=== PATIENT | male | born 1960 | race Caucasian/White ===

== ENCOUNTER 2017-11-02 16:24 | Outpatient (CLI) | payer OTHER | END 2017-11-02 16:25 | disposition home or self-care (01) | LOC: BICRAD 16:24 | PROVIDERS: ATTEND Chiropractor | DX: M54.2 Cervicalgia (principal); M54.5 Low back pain; M54.6 Pain in thoracic spine; M47.896 Other spondylosis, lumbar region; M41.86 Other forms of scoliosis, lumbar region; M41.84 Other forms of scoliosis, thoracic region; M47.894 Other spondylosis, thoracic region; M47.892 Other spondylosis, cervical region | CPT/HCPCS: 72040; 72072; 72100 ==

== ENCOUNTER 2020-08-26 01:16 | Inpatient (IN) | payer MEDICARE ==
[2020-08-26] MEDS ORDERED: Ondansetron PF 4 MG/2 ML Vial IVP PRN (01:17)
[2020-08-26] MEDS ORDERED: Dextrose 50% Abboject 50 ML SYRINGE SLOW IVP PRN (01:17)
[2020-08-26] MEDS ORDERED: Dextrose 5% in Water 1,000 ML IV PRN (01:17)
[2020-08-26] MEDS ORDERED: HumaLOG 300 UNITS/3 ML VIAL SC PRN (01:17)
[2020-08-26] MEDS ORDERED: niCARdipine 25 MG in Sodium Chloride 0.9% 250 ML 240 ML IVPB PRN (01:21)
[2020-08-26] MEDS ORDERED: Labetalol HCl 100 MG/20 ML VIAL SLOW IVP PRN (01:21)
[2020-08-26] MEDS ORDERED: Lactated Ringer's 1,000 ML IV SCH (01:30)
[2020-08-26 01:38] VITALS: BMI 35.1
[2020-08-26] MEDS: Acetaminophen 325 MG TAB PO SCH ×4 (05:25→16:52)
[2020-08-26 05:59] LABS: #Eosinphils 0.1 thou/uL (0.0-0.7); #Lymphocytes 4.2 thou/uL (1.20-3.40); #Neutrophils 8.3 thou/uL (1.40-6.50); %Basophils 0.2 % (0.0-1.0); %Eosinophils 0.6 % (0.0-10.0); %Lymphocytes 31.1 % (21.0-51.0); %Monocytes 7.4 % (0.0-10.0); %Neutrophils 60.7 % (42.0-75.0); Hemoglobin 12.7 g/dL (14.0-18.0); Mean Corpuscular HGB CONC 32.8 g/dL (32.0-36.0); Mean Corpuscular Hemoglobin 30.2 pg (27.0-31.0); Mean Corpuscular Volume 92.1 fL (78.0-98.0); Mean Platelet Volume 8.7 fL (7.4-10.4); Platelet Count 200 thou/uL (130-400); RBC Distribution Width 12.4 % (11.5-14.5); White Blood Cell (WBC) Count 13.6 thou/uL (4.8-10.8)
[2020-08-26 06:25] LABS: Anion Gap 17 mmol/L (10-20); BUN (Urea Nitrogen) 10 mg/dL (8.4-25.7); Calc. Creatinine Clearance 181 mL/min (70-130); Calcium 8.9 mg/dL (7.8-10.44); Carbon Dioxide 19 mmol/L (22-29); Chloride 107 mmol/L (98-107); Glucose 123 mg/dL (70-105); Magnesium 1.8 mg/dL (1.6-2.6); Potassium 3.8 mmol/L (3.5-5.1); Sodium 139 mmol/L (136-145)
[2020-08-26] MEDS ORDERED: Famotidine 20 MG TAB PO SCH (09:00)
[2020-08-26 17:35] VITALS: TEMP 98
== END 2020-08-26 17:10 | disposition home or self-care (01) | DRG 86 ==
LOC: CCU 01:16
PROVIDERS: ADMIT Surgery; ATTEND Surgery
DX: S06.300A Unspecified focal traumatic brain injury without loss of consciousness, initial encounter (principal); I69.351 Hemiplegia and hemiparesis following cerebral infarction affecting right dominant side; E66.9 Obesity, unspecified; E78.5 Hyperlipidemia, unspecified; I10 Essential (primary) hypertension; F32.9 Major depressive disorder, single episode, unspecified; F10.129 Alcohol abuse with intoxication, unspecified; W01.10XA Fall on same level from slipping, tripping and stumbling with subsequent striking against unspecified object, initial encounter; E11.9 Type 2 diabetes mellitus without complications; Z68.35 Body mass index [BMI] 35.0-35.9, adult
CPT/HCPCS: 36415; 36416; 70450; 72070; 72100; 80048; 83735; 84100; 85025

== ENCOUNTER 2021-01-18 13:09 | Outpatient (CLI) | payer MEDICARE | END 2021-01-18 13:10 | disposition home or self-care (01) | LOC: BICRAD 13:09 | PROVIDERS: ATTEND Internal Medicine | DX: Z00.00 Encounter for general adult medical examination without abnormal findings (principal) | CPT/HCPCS: 71046 ==